=== PATIENT | male | born 1965 | race Caucasian/White ===

== ENCOUNTER 2019-05-16 08:34 | Inpatient (IN) | payer MEDICAID ==
[~2019-05-16] VITALS: Ht 177.8 cm; Wt 95.3 kg
[2019-05-16] MEDS ORDERED: SODIUM CHLORIDE 0.9% 1,000 ML IV ONE (08:59)
[2019-05-16] MEDS ORDERED: LEVETIRACETAM 1000MG/100ML 100 ML IV ONE (09:00)
[2019-05-16] MEDS ORDERED: LORAZEPAM 2MG/ML CPJ IV ONE (09:15)
[2019-05-16 10:48] LABS: CHLORIDE 102 mEq/L (98-107)
[2019-05-16 10:51] LABS: BASOPHILS % 0.5 % (0.0-2.0); HEMATOCRIT. 40.7 % (42.0-52.0); HEMOGLOBIN. 14.4 g/dL (14.0-18.0); LYMPHOCYTES % 15.3 % (20.0-50.0); MEAN CORPUSCULAR HEMOGLOBIN 33.1 pg (28.0-32.0); MEAN CORPUSCULAR VOLUME 93.7 fL (80.0-94.0); NEUTROPHILS % 76.2 % (40.0-76.0); PLATELET 285 x1000/uL (130-400); RED BLOOD CELL COUNT 4.34 mill/uL (4.7-6.1); RED CELL DISTRIBUTION WIDTH 12.6 % (11.6-14.6)
[2019-05-16 10:54] LABS: ETHANOL BLOOD < 10 mg/dL
[2019-05-16 10:57] LABS: CREATINE KINASE 221 IU/L (39-308)
[2019-05-16 10:59] LABS: CLARITY URINE CLEAR (CLEAR); COLOR URINE YELLOW (YELLOW); KETONES URINE NEGATIVE (NEGATIVE); LEUKOCYTE ESTERASE URINE NEGATIVE (NEGATIVE); NITRITE URINE NEGATIVE (NEGATIVE); OCCULT BLOOD URINE NEGATIVE (NEGATIVE); PH URINE 8.5 (4.5-8.0); PROTEIN URINE NEGATIVE (NEGATIVE); SPECIFIC GRAVITY URINE 1.005 (1.005-1.030); UROBILINOGEN URINE 0.2 E.U./dL (0.2-1.0)
[2019-05-16 11:14] LABS: PHENOBARBITAL < 2.1 ug/mL (15.0-40.0)
[2019-05-16 11:15] LABS: CARBAMAZEPINE < 0.5 ug/mL (4-12)
[2019-05-16] MEDS ORDERED: VALPROATE SODIUM 250MG/5ML UDC PO ONE (11:45)
[2019-05-16 11:52] LABS: *AMPHETAMINES SCREEN URINE NEGATIVE (NEGATIVE); *BARBITURATES SCREEN URINE NEGATIVE (NEGATIVE); *BENZODIAZEPINES SCREEN URINE NEGATIVE (NEGATIVE); *COCAINE SCREEN URINE NEGATIVE (NEGATIVE)
[2019-05-16 11:53] LABS: CANNABINOID URINE SCREEN NEGATIVE (NEGATIVE); METHADONE URINE SCREEN NEGATIVE (NEGATIVE); OPIATES URINE SCREEN NEGATIVE (NEGATIVE); PHENCYCLIDINE URINE SCREEN NEGATIVE (NEGATIVE)
[2019-05-16 17:00] VITALS: BP 143/91
[2019-05-16 17:30] VITALS: BP 143/91
[2019-05-16] MEDS ORDERED: DOCUSATE SODIUM 100MG CAPSULE PO PRN (17:45)
[2019-05-16] MEDS ORDERED: IPRATROPIUM/ALBUTEROL 0.5-3(2.5)MG/3ML NEB HHN PRN (17:45)
[2019-05-16] MEDS ORDERED: GUAIFENESIN 200MG/10ML SUGAR FREE UDC PO PRN (17:45)
[2019-05-16] MEDS ORDERED: HYDROCODONE/ACETAMINOPHEN 10/325MG TABLET PO PRN (17:45)
[2019-05-16] MEDS ORDERED: MORPHINE SULFATE 2 MG/ML CPJ (NOT FOR IM USE) IV PRN (17:45)
[2019-05-16] MEDS ORDERED: NA PHOS,M-B/NA PHOS,DI-BA ENEMA 118ML PR PRN (17:45)
[2019-05-16] MEDS ORDERED: ONDANSETRON HCL 4MG/2ML INJ IV PRN (17:45)
[2019-05-16] MEDS ORDERED: DIPHENHYDRAMINE 50MG/ML VIAL IV PRN (17:45)
[2019-05-16] MEDS ORDERED: CLONIDINE 0.1MG TABLET PO PRN (17:45)
[2019-05-16] MEDS ORDERED: ACETAMINOPHEN 325MG TABLET PO PRN (17:45)
[2019-05-16] MEDS ORDERED: MAGNESIUM/ALUMINUM HYDROXIDE/SIMETHICONE 30ML UDC PO PRN (17:45)
[2019-05-16] MEDS: LORAZEPAM 2MG/ML CPJ IV PRN (18:18)
[2019-05-16] MEDS: DEXT 5%/0.45% NACL 1000ML 1,000 ML IV SCH (18:47)
[2019-05-16] MEDS ORDERED: SODIUM CHLORIDE 0.45% 1,000 ML IV SCH (19:00)
[2019-05-16 20:00] VITALS: BP 123/80
[2019-05-16] MEDS ORDERED: ENOXAPARIN 40MG/0.4ML SYR SUBCUT SCH (21:00)
[2019-05-16] MEDS: SODIUM CHLORIDE 0.9% INJ 3ML FLUSH IVF SCH (21:02)
[2019-05-16] MEDS ORDERED: INFLUENZA VIRUS VACCINE(AFLURIA) 0.5ML SYR IM ONE (22:00)
[2019-05-17] VITALS (7 sets, daily range): BP systolic 116–139; BP diastolic 50–93
[2019-05-17 00:45] LABS: CREATINE KINASE 233 IU/L (39-308); CREATINE KINASE MB FRACTION < 1.0 ng/mL (0.5-3.6)
[2019-05-17] MEDS: LORAZEPAM 2MG/ML CPJ IV PRN ×4 (01:25→13:31)
[2019-05-17] MEDS: SODIUM CHLORIDE 0.9% INJ 3ML FLUSH IVF SCH ×2 (07:26→12:36)
[2019-05-17 08:23] LABS: BASOPHILS % 0.5 % (0.0-2.0); EOSINOPHILS % 4.9 % (0.0-5.0); HEMATOCRIT. 39.1 % (42.0-52.0); HEMOGLOBIN. 13.8 g/dL (14.0-18.0); MEAN CORPUSCULAR HEMOGLOBIN 32.5 pg (28.0-32.0); MEAN CORPUSCULAR VOLUME 92.3 fL (80.0-94.0); MEAN PLATELET VOLUME 7.2 fl (7.4-10.4); MONOCYTES % 6.9 % (2.0-8.0); NEUTROPHILS % 67.7 % (40.0-76.0); PLATELET 275 x1000/uL (130-400); RED BLOOD CELL COUNT 4.24 mill/uL (4.7-6.1); RED CELL DISTRIBUTION WIDTH 12.8 % (11.6-14.6)
[2019-05-17] MEDS ORDERED: ASPIRIN 81MG EC TABLET PO SCH (09:00)
[2019-05-17 09:45] LABS: CHLORIDE 104 mEq/L (98-107)
[2019-05-17 09:59] LABS: T4 FREE 1.08 ng/dL (0.76-1.46)
[2019-05-17 10:01] LABS: CREATINE KINASE MB FRACTION < 1.0 ng/mL (0.5-3.6)
[2019-05-17] MEDS ORDERED: KEPP500 PO (10:19)
[2019-05-17] MEDS ORDERED: LACT10SO7 PO (10:19)
[2019-05-17] MEDS ORDERED: BENA40TA66 PO (10:19)
[2019-05-17] MEDS ORDERED: FAMO40TA70 PO (10:19)
[2019-05-17] MEDS ORDERED: DIVA-18 PO (10:19)
[2019-05-17] MEDS ORDERED: GABA800T97 MT (10:19)
[2019-05-17] MEDS ORDERED: HALOPERIDOL LACTATE 5MG/ML VIAL IM PRN (10:30)
[2019-05-17] MEDS ORDERED: BENAZEPRIL HCL 40 MG PO SCH (10:30)
[2019-05-17] MEDS ORDERED: DIVALPROEX SODIUM 500 MG PO SCH (10:30)
[2019-05-17] MEDS: LEVETIRACETAM 500MG TABLET PO SCH ×2 (10:35→17:24)
[2019-05-17] MEDS ORDERED: BENAZEPRIL 10MG TABLET PO SCH (10:40)
[2019-05-17 11:20] LABS: CREATINE KINASE 234 IU/L (39-308)
[2019-05-17] MEDS: DEXT 5%/0.45% NACL 1000ML 1,000 ML IV SCH (12:34)
[2019-05-17] MEDS: DIVALPROEX SODIUM 250MG DR TABLET PO SCH ×2 (12:40→17:24)
[2019-05-17] MEDS ORDERED: MEDICATION NOT ON FORMULARY EA (Famotidine (Pepcid) 40 MG) PO SCH (21:00)
[2019-05-17] MEDS ORDERED: FAMOTIDINE 20MG TABLET PO SCH (21:00)
== END 2019-05-17 17:35 | DRG 53 ==
LOC: ER 09:17 → EDBD 11:39 → 6WST 11:39 → EDBEDREQ 11:41 → EDBEDREQTM 11:41 → ENRESERV 15:56
PROVIDERS: ADMIT Internal Medicine; ATTEND Internal Medicine
DX: R56.9 Unspecified convulsions (principal); E87.1 Hypo-osmolality and hyponatremia
CPT/HCPCS: 36415; 71045; 80156; 80165; 80184; 80185; 80305; 80320; 81003; 82550; 82553; 82962; 84439; 84443; 84484; 93005; 96374; 99285; J1630; J1650; J1953; J2060; J7030; G0480

== ENCOUNTER 2019-05-25 13:32 | Inpatient (IN) | payer MEDICAID ==
[~2019-05-25] VITALS: Ht 177.8 cm; Wt 95.3 kg
[~2019-05-25 13:32] MED LIST: BENA40TA66 PO; DIVA-18 PO; FAMO40TA70 PO; GABA800T97 MT; KEPP500 PO; LACT10SO7 PO
[2019-05-25] MEDS ORDERED: FOLIC ACID 1 MG, THIAMINE HCL 100 MG, MVI, ADULT NO.1 10 ML in DEXTROSE 5% WATER 1,000 ML IV ONE ×4 (17:30)
[2019-05-25] MEDS ORDERED: LEVETIRACETAM 1000MG/100ML 100 ML IV ONE (17:30)
[2019-05-25 18:23] LABS: BASOPHILS % 0.7 % (0.0-2.0); EOSINOPHILS % 4.4 % (0.0-5.0); HEMATOCRIT. 42.5 % (42.0-52.0); HEMOGLOBIN. 14.2 g/dL (14.0-18.0); LYMPHOCYTES % 37.5 % (20.0-50.0); MEAN CORPUSCULAR VOLUME 95.9 fL (80.0-94.0); MEAN PLATELET VOLUME 7.1 fl (7.4-10.4); MONOCYTES % 4.4 % (2.0-8.0); PLATELET 82 x1000/uL (130-400); RED BLOOD CELL COUNT 4.43 mill/uL (4.7-6.1); RED CELL DISTRIBUTION WIDTH 13.2 % (11.6-14.6)
[2019-05-25 18:34] LABS: CHLORIDE 109 mEq/L (98-107)
[2019-05-25 18:38] LABS: ETHANOL BLOOD 171 mg/dL
[2019-05-25] MEDS ORDERED: DIVALPROEX SODIUM 250MG DR TABLET PO ONE (19:30)
[2019-05-26] MEDS ORDERED: LORAZEPAM 2MG/ML CPJ ONE (06:24)
[2019-05-26] MEDS ORDERED: LORAZEPAM 2MG/ML CPJ IV ONE (06:30)
[2019-05-26] MEDS ORDERED: LEVETIRACETAM 1000MG/100ML 100 ML IV ONE (06:30)
[2019-05-26 10:45] VITALS: BP 137/78
[2019-05-26 10:50] VITALS: BP 137/78
[2019-05-26] MEDS ORDERED: MAGNESIUM/ALUMINUM HYDROXIDE/SIMETHICONE 30ML UDC PO PRN (11:45)
[2019-05-26] MEDS ORDERED: ONDANSETRON HCL 4MG/2ML INJ IV PRN (11:45)
[2019-05-26] MEDS ORDERED: LORAZEPAM 2MG/ML CPJ IV PRN (11:45)
[2019-05-26] MEDS ORDERED: ACETAMINOPHEN 325MG TABLET PO PRN (11:45)
[2019-05-26] MEDS ORDERED: IPRATROPIUM/ALBUTEROL 0.5-3(2.5)MG/3ML NEB HHN PRN (11:45)
[2019-05-26] MEDS ORDERED: CLONIDINE 0.1MG TABLET PO PRN (11:45)
[2019-05-26] MEDS ORDERED: DIPHENHYDRAMINE 50MG/ML VIAL IV PRN (11:45)
[2019-05-26 12:00] VITALS: BP 137/87
[2019-05-26] MEDS ORDERED: SODIUM CHLORIDE 0.9% 1,000 ML IV SCH (12:00)
[2019-05-26] MEDS: DIVALPROEX SODIUM 500MG ER TABLET PO SCH (12:46)
[2019-05-26] MEDS ORDERED: KCL 20MEQ/100ML PREMIX 100 ML IV SCH (13:00)
[2019-05-26 14:27] LABS: PHOSPHORUS 1.8 mg/dL (2.5-4.9)
[2019-05-26 16:00] VITALS: BP 139/84
[2019-05-26 20:00] VITALS: BP 152/80
[2019-05-26] MEDS: LEVETIRACETAM 500 MG in SODIUM CHLORIDE 0.9% 100 ML IV SCH (22:01)
[2019-05-27] VITALS: BP 123/73
[2019-05-27 04:00] VITALS: BP 138/81
[2019-05-27 08:00] VITALS: BP 151/82
[2019-05-27] MEDS: LEVETIRACETAM 500 MG in SODIUM CHLORIDE 0.9% 100 ML IV SCH (09:38)
[2019-05-27] MEDS: DIVALPROEX SODIUM 500MG ER TABLET PO SCH (09:59)
[2019-05-27] MEDS ORDERED: LACTULOSE 20G/30ML UDC PO SCH (14:00)
== END 2019-05-27 11:25 | disposition left against medical advice (07) | DRG 53 ==
LOC: ER 13:32 → 6WST 05-26 06:34 → ENRESERV 05-26 09:04 → UNDODISIN 05-26 18:42
PROVIDERS: ADMIT Internal Medicine; ATTEND Internal Medicine
DX: G40.409 Other generalized epilepsy and epileptic syndromes, not intractable, without status epilepticus (principal); G92 Toxic encephalopathy; E87.6 Hypokalemia; R73.9 Hyperglycemia, unspecified; F10.129 Alcohol abuse with intoxication, unspecified; I10 Essential (primary) hypertension; Z53.29 Procedure and treatment not carried out because of patient's decision for other reasons; K72.90 Hepatic failure, unspecified without coma; Y90.6 Blood alcohol level of 120-199 mg/100 ml; F17.200 Nicotine dependence, unspecified, uncomplicated; Z91.19 Patient's noncompliance with other medical treatment and regimen
CPT/HCPCS: 36415; 80165; 80307; 80320; 80329; 82140; 82962; 83735; 84100; 93970; 96365; 99285; C1893; J1200; J1953; J2060; J3411; J3480; J3490; J7030; J7050; J7070; G0480

== ENCOUNTER 2019-05-29 01:17 | Emergency (ER) | payer MEDICAID ==
[~2019-05-29] VITALS: Ht 177.8 cm; Wt 91.0 kg
[2019-05-29] MEDS ORDERED: ONDANSETRON HCL 4MG/2ML INJ IV STA (03:57)
[2019-05-29] MEDS ORDERED: LORAZEPAM 2MG/ML CPJ IV ONE (04:00)
[2019-05-29 04:24] LABS: EOSINOPHILS % 6.8 % (0.0-5.0); HEMATOCRIT. 40.2 % (42.0-52.0); HEMOGLOBIN. 14.2 g/dL (14.0-18.0); LYMPHOCYTES % 23.8 % (20.0-50.0); MEAN CORPUSCULAR HEMOGLOBIN 32.5 pg (28.0-32.0); MEAN CORPUSCULAR VOLUME 91.9 fL (80.0-94.0); MEAN PLATELET VOLUME 6.2 fl (7.4-10.4); MONOCYTES % 5.1 % (2.0-8.0); NEUTROPHILS % 63.3 % (40.0-76.0); PLATELET 266 x1000/uL (130-400); RED BLOOD CELL COUNT 4.37 mill/uL (4.7-6.1); RED CELL DISTRIBUTION WIDTH 12.9 % (11.6-14.6)
[2019-05-29 04:29] LABS: CHLORIDE 109 mEq/L (98-107)
[2019-05-29 04:34] LABS: ETHANOL BLOOD 22 mg/dL
[2019-05-29 06:05] LABS: CLARITY URINE CLEAR (CLEAR); COLOR URINE DARK YELLOW (YELLOW); KETONES URINE TRACE (NEGATIVE); LEUKOCYTE ESTERASE URINE NEGATIVE (NEGATIVE); NITRITE URINE NEGATIVE (NEGATIVE); OCCULT BLOOD URINE 2+ (NEGATIVE); PH URINE 5.5 (4.5-8.0); PROTEIN URINE NEGATIVE (NEGATIVE); SPECIFIC GRAVITY URINE 1.018 (1.005-1.030); UROBILINOGEN URINE 0.2 E.U./dL (0.2-1.0)
[2019-05-29 06:24] LABS: *AMPHETAMINES SCREEN URINE NEGATIVE (NEGATIVE); *BARBITURATES SCREEN URINE NEGATIVE (NEGATIVE); *BENZODIAZEPINES SCREEN URINE NEGATIVE (NEGATIVE); *COCAINE SCREEN URINE NEGATIVE (NEGATIVE); METHADONE URINE SCREEN NEGATIVE (NEGATIVE); OPIATES URINE SCREEN NEGATIVE (NEGATIVE)
[2019-05-29 06:25] LABS: CANNABINOID URINE SCREEN NEGATIVE (NEGATIVE); PHENCYCLIDINE URINE SCREEN NEGATIVE (NEGATIVE)
[2019-05-29 16:14] VITALS: BP 128/76
== END 2019-05-29 16:15 | disposition home or self-care (01) ==
LOC: ER 01:17
DX: G40.909 Epilepsy, unspecified, not intractable, without status epilepticus (principal); F10.229 Alcohol dependence with intoxication, unspecified; Y90.1 Blood alcohol level of 20-39 mg/100 ml; I10 Essential (primary) hypertension; Z59.0 Homelessness; F91.8 Other conduct disorders
CPT/HCPCS: 36415; 70450; 71045; 73130; 80053; 80305; 80320; 81003; 83605; 84484; 85025; 93005; 96374; 96375; 99284; J2060; J2405; Z7610; A4315; G0480

== ENCOUNTER 2019-05-30 01:07 | Emergency (ER) | payer MEDICAID ==
[~2019-05-30] VITALS: Ht 177.8 cm; Wt 82.0 kg
[2019-05-30] MEDS ORDERED: VALPROATE SODIUM 1,000 MG in DEXT 5% WATER 100 ML IV ONE (04:15)
[2019-05-30 06:43] VITALS: BP 138/88
== END 2019-05-30 07:18 | disposition home or self-care (01) ==
LOC: ER 01:07
DX: R56.9 Unspecified convulsions (principal); I10 Essential (primary) hypertension; F10.20 Alcohol dependence, uncomplicated; F17.200 Nicotine dependence, unspecified, uncomplicated; Z79.899 Other long term (current) drug therapy; Y90.9 Presence of alcohol in blood, level not specified
CPT/HCPCS: 96365; 99283; J3490; J7060; Z7610